=== PATIENT | female | born 1945 | race Caucasian/White ===

== ENCOUNTER → 2025-06-23 12:11 | Outpatient (REF) | payer MEDICARE, SELFPAY | LOC: DHSLP 12:11 | PROVIDERS: ATTENDING PHYSICIAN Physician Assistant Medical | DX: G47.33 Obstructive sleep apnea (adult) (pediatric) (principal); R06.83 Snoring | CPT/HCPCS: 95800 ==

== ENCOUNTER → 2025-06-29 07:46 | Outpatient (REF) | payer MEDICARE, SELFPAY | LOC: HWRCS 07:46 | PROVIDERS: ATTENDING PHYSICIAN Internal Medicine Cardiovascular Disease; FAMILY PHYSICIAN Family Medicine | DX: I25.10 Atherosclerotic heart disease of native coronary artery without angina pectoris (principal) | CPT/HCPCS: 78452; 93017; A9500; J2785 ==